=== PATIENT | female | born 1995 ===

== ENCOUNTER 2022-06-12 07:42 | Outpatient (CLI) | payer BC ==
[2022-06-12] MEDS ORDERED: Iopamidol 300 61% 100 ML VIAL FS ONE (08:41)
== END 2022-06-12 07:43 | disposition home or self-care (01) ==
LOC: CSHCT 07:42
PROVIDERS: ATTEND Internal Medicine Gastroenterology
DX: R10.9 Unspecified abdominal pain (principal); E66.9 Obesity, unspecified; F31.9 Bipolar disorder, unspecified; K92.1 Melena; R19.8 Other specified symptoms and signs involving the digestive system and abdomen
CPT/HCPCS: 74177

== ENCOUNTER 2023-05-29 21:46 | Emergency (ER) | payer BC ==
[2023-05-29] MEDS ORDERED: Ondansetron ODT 4 MG TAB ONE (22:41)
== END 2023-05-29 22:43 | disposition home or self-care (01) ==
LOC: CSHERS 21:46
DX: S06.0X0A Concussion without loss of consciousness, initial encounter (principal); J45.909 Unspecified asthma, uncomplicated; Z79.51 Long term (current) use of inhaled steroids; W18.09XA Striking against other object with subsequent fall, initial encounter
CPT/HCPCS: 99283; Q0162